=== PATIENT | male | born 1975 | race Two or more races ===

== ENCOUNTER 2018-10-27 19:29 | Emergency (ER) | payer SELFPAY ==
[~2018-10-27] VITALS: Ht 172.7 cm; Wt 82.0 kg
[2018-10-27] MEDS ORDERED: BACITRACIN ZINC OINT UDPKT TOP ONE (20:15)
[2018-10-27] MEDS ORDERED: TETANUS, DIPHTHERIA, PERTUSSIS VAC/PF 0.5ML (>7YR OLD) IM ONE (20:15)
[2018-10-27] MEDS ORDERED: IBUPROFEN 800MG TABLET PO ONE (20:15)
[2018-10-27 20:55] VITALS: BP 134/84
== END 2018-10-27 21:38 | disposition home or self-care (01) ==
LOC: ER 19:29
DX: S80.02XA Contusion of left knee, initial encounter (principal); S80.01XA Contusion of right knee, initial encounter; S50.01XA Contusion of right elbow, initial encounter; S20.211A Contusion of right front wall of thorax, initial encounter; V23.4XXA Motorcycle driver injured in collision with car, pick-up truck or van in traffic accident, initial encounter; Y93.89 Activity, other specified; Y92.411 Interstate highway as the place of occurrence of the external cause
CPT/HCPCS: 71101; 73562; 90471; 90715; 99283